=== PATIENT | female | born 1985 | race African-American/Black ===

== ENCOUNTER 2020-12-11 13:36 | Emergency (ER) | payer MEDICAID ==
[~2020-12-11] VITALS: Ht 167.6 cm; Wt 86.0 kg
[2020-12-11] MEDS ORDERED: HYDROCODONE/ACETAMINOPHEN 5/325MG TABLET PO STA (16:32)
[2020-12-11] MEDS ORDERED: HYDR-4346 PO (17:58)
[2020-12-11 18:53] VITALS: BP 132/93
== END 2020-12-11 18:54 | disposition home or self-care (01) ==
LOC: ER 13:36
DX: R60.0 Localized edema (principal); Z87.81 Personal history of (healed) traumatic fracture; Z48.00 Encounter for change or removal of nonsurgical wound dressing
CPT/HCPCS: 73562; 93971; 99284; Z7610